=== PATIENT | male | born 1975 | race Caucasian/White ===

== ENCOUNTER 2024-10-12 06:56 | Emergency (ER) | payer MEDICAID ==
[~2024-10-12] VITALS: Ht 175.3 cm; Wt 77.1 kg
[2024-10-12 07:40] VITALS: BP 148/96; TEMP 97.1; O2SAT 99
[2024-10-12] MEDS ORDERED: ALBU18HF2 INH (08:07)
[2024-10-12] MEDS ORDERED: AZIT250T13 PO (08:07)
[2024-10-12] MEDS ORDERED: AMOX500T2 PO (08:07)
== END 2024-10-12 08:22 | disposition home or self-care (01) ==
LOC: ER 07:15
DX: J22 Unspecified acute lower respiratory infection (principal); R05.9 Cough, unspecified; I10 Essential (primary) hypertension